=== PATIENT | male | born 1990 | race Caucasian/White ===

== ENCOUNTER 2018-09-03 10:54 | Emergency (ER) | payer SELFPAY ==
[~2018-09-03] VITALS: Ht 180.3 cm; Wt 104.5 kg
[~2018-09-03 10:54] MED LIST: AMBIEN10 MG PO; METFORMIN500 MG PO
[2018-09-03 10:55] VITALS: TEMP 98.2
[2018-09-03] MEDS ORDERED: COZAAR 50MG50 MG/TAB PO (12:24)
[2018-09-03] MEDS ORDERED: CANA300T PO (12:25)
[2018-09-03] MEDS ORDERED: LIPITOR 10MG10 MG PO (12:25)
[2018-09-03] MEDS ORDERED: GLUCOPHAGE XR500 M1 PO (12:25)
[2018-09-03] MEDS ORDERED: TESTOSTERONE (12:26)
[2018-09-03 12:58] VITALS: BP 149/103; PULSE 82
== END 2018-09-03 13:06 | disposition home or self-care (01) ==
LOC: COL.ER 10:58
DX: R51 Headache (principal); I10 Essential (primary) hypertension; E11.9 Type 2 diabetes mellitus without complications; Z79.84 Long term (current) use of oral hypoglycemic drugs; V49.50XA Passenger injured in collision with unspecified motor vehicles in traffic accident, initial encounter; Y92.488 Other paved roadways as the place of occurrence of the external cause

== ENCOUNTER 2018-09-12 14:23 | Outpatient (RCR) | payer OTHER ==
[~2018-09-12 14:23] MED LIST changes: +CANA300T PO; +COZAAR 50MG50 MG/TAB PO; +GLUCOPHAGE XR500 M1 PO; +LIPITOR 10MG10 MG PO; +TESTOSTERONE
== END 2018-11-20 15:18 | disposition home or self-care (01) ==
LOC: WSOH 14:23
DX: S16.1XXA Strain of muscle, fascia and tendon at neck level, initial encounter (principal); V49.50XA Passenger injured in collision with unspecified motor vehicles in traffic accident, initial encounter; Y93.9 Activity, unspecified; Y99.0 Civilian activity done for income or pay; I10 Essential (primary) hypertension; E11.9 Type 2 diabetes mellitus without complications; Z79.4 Long term (current) use of insulin; E78.00 Pure hypercholesterolemia, unspecified; Z79.899 Other long term (current) drug therapy